=== PATIENT | female | born 1965 | race Caucasian/White ===

== ENCOUNTER 2021-04-24 18:20 | Emergency (ER) | payer BC ==
[2021-04-24 18:44] VITALS: BP 155/78; PULSE 72; RESP 18; TEMP 98.3
--- NOTE | 2021-04-24 19:25 | XR ---
EXAMINATION TYPE: XR foot complete LT DATE OF EXAM: 04/24/2021 COMPARISON: NONE HISTORY: Pain TECHNIQUE: 3 views FINDINGS: There is plantar calcaneal spurring. Metatarsals are intact. There is nondisplaced transverse fracture of the mid shaft of the proximal phalanx of the little toe. There is no dislocation. IMPRESSION: Acute fracture of the little toe.
--- NOTE | 2021-04-24 19:49 | ED ---
General Adult HPI - General Chief complaint: Extremity Injury, Lower Stated complaint: Toe injury Time Seen by Provider: 04/24/21 18:50 Source: patient, RN notes reviewed, old records reviewed Mode of arrival: ambulatory Limitations: no limitations - History of Present Illness Initial comments: Patient is a 56-year-old female with no smoking past medical history presents emergency Department following a left toe injury. [place] water and she believes she landed on a rock with her left small toe. She states that afterward she had a little bit of pain, however saw that it was "loose" and she was concerned she may have broken it. She states she is in minimal pain and declines any analgesia at this time. She denies any other acute injuries. She was ambulatory afterwards. She denies any numbness or sensory deficits to the left foot. She has no other acute injuries at this time. She is not on blood thinners. She is known medication ALLERGIES. Patient otherwise has no acute complaints at this time. Injury occurred approximately 2 hours ago. - Related Data Allergies Allergy/AdvReac Type Severity Reaction Status Date / Time azithromycin [From Zithromax] Allergy Rash/Hives Verified 04/24/21 18:46 thimerosal Allergy Rash/Hives Verified 04/24/21 18:46 Review of Systems ROS Statement: Those systems with pertinent positive or pertinent negative responses have been documented in the HPI. Review of Systems: CONST: Denies fever EYES: Denies blurry vision ENT: Denies nasal congestion C/V: Denies Chest pain RESP: Denies shortness of breath GI: Denies abdominal pain : Denies dysuria SKIN: Denies rash. MSK: Endorses very mild left small toe pain. NEURO: Denies headache ROS Other: All systems not noted in ROS Statement are negative. Past Medical History Additional Past Medical History / Comment(s): COVID 11/29 History of Any Multi-Drug Resistant Organisms: None Reported Past Surgical History: Orthopedic Surgery Additional Past Surgical History / Comment(s): rt knee Past Psychological History: No Psychological Hx Reported Smoking Status: Never smoker Past Alcohol Use History: None Reported Past Drug Use History: None Reported General Exam - General Exam Comments Initial Comments: General: Appears in no acute distress. HEAD: Normal with no signs of head trauma. EYES: EOMI ENT: Hearing grossly intact RESPIRATORY:. Distress C/V: Regular rate and rhythm. Peripheral pulses are 2+ and intact throughout, including in the left DP and PT. She has good cap refill of the left fifth toe. ABD: Abdomen is nondistended. EXT: Patient does have some laxity of the left fifth toe, with minimal tenderness to palpation. She is good capillary refill over the site. No sensory deficits. SKIN: No rashes or lesions observed on exposed skin. NEURO: Alert and oriented 4. No focal sensory strength deficits. Limitations: no limitations Course Vital Signs 04/24/21 18:41 Temperature 98.3 F Pulse Rate 72 Respiratory 18 Rate Blood Pressure 155/78 O2 Sat by Pulse 99 Oximetry Medical Decision Making - Medical Decision Making Based on the patient's presentation and physical exam, I'm concerned for acute bony traumatic injury to the patient's left pinky toe. Therefore we will obtain a x-ray of the left foot. She declines analgesia at this time. She was in agreement this plan. She has no other injuries from the fall. It does appear that the patient has a midshaft left nondisplaced transverse fracture of the proximal phalanx of the fifth digit of the left foot. I informed the patient results of her imaging. I informed her that she does not require urgent surgery, and we will lilly tape the left small toe to her left fourth toe at this time. She also be sent home in an ortho shoe. She was instructed to follow-up with orthopedic surgery within the next few days. She was in agreement this plan. She states she has Tylenol and Motrin at home for analgesia. . I instructed the patient to follow up with their PCP in the next 3 days. I provided contact information for follow up with orthopedic surgery, Dr. Ortiz. I explained that the patient should return to the emergency department if they experience any worsening symptoms. Strict return precautions were discussed with the patient. The patient expressed understanding of these instructions. I answered all questions that the patient had. The patient was discharged home in fair condition with their prescriptions and follow up information. Disposition Clinical Impression: Fracture of toe of left foot Disposition: HOME SELF-CARE Condition: Fair Instructions (If sedation given, give patient instructions): Toe Fracture (ED) Is patient prescribed a controlled substance at d/c from ED?: No Referrals: Nonstaff,Physician [Primary Care Provider] - 1-2 days Oswald Ortiz MD [STAFF PHYSICIAN] - 1-2 days
== END 2021-04-24 20:05 | disposition home or self-care (01) ==
LOC: EC 18:20
DX: S92.515A Nondisplaced fracture of proximal phalanx of left lesser toe(s), initial encounter for closed fracture (principal); Z88.1 Allergy status to other antibiotic agents; Z86.16 Personal history of COVID-19; W16.112A Fall into natural body of water striking water surface causing other injury, initial encounter
CPT/HCPCS: 99284